=== PATIENT | female | born 1970 | race Caucasian/White ===

== ENCOUNTER 2020-04-13 17:32 | Emergency (ER) | payer SELFPAY ==
[2020-04-13] MEDS: Sodium Chloride 0.9% 1,000 ML IV SCH (18:13)
--- NOTE | 2020-04-13 18:14 | EDM.PDOC ---
<Stephon Chand - Last Filed: 04/13/20 18:19> ED HPI GENERAL MEDICAL PROBLEM - General Chief Complaint: Abdominal Pain Stated Complaint: THINKS APPENDICITIS Time Seen by Provider: 04/13/20 18:06 Source of Information: Reports: Patient History Limitations: Reports: No Limitations - History of Present Illness INITIAL COMMENTS - FREE TEXT/NARRATIVE: Patient presents today with worsening abdominal pain that began last night. She describes the pain as 7/10, no radiations located in the periumbilical area. This is associated with one episode of vomiting, subjective fever, and chills. She has tried using Tylenol which did not provide any relief of symptoms. Her last dosage was this morning. 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 Due to this, she is s/p cholecystectomy, splenectomy, and the body and tail of her pancreas were removed. She has a history of blood clots and a PE in 2010 following her surgery. She is not currently on anticoagulants. Upper Abdomen Pain Score (Numeric/FACES): 7 - Related Data Allergies Allergy/AdvReac Type Severity Reaction Status Date / Time No Known Allergies Allergy Verified 04/13/20 18:00 Home Meds: Home Meds Insulin Aspart [NovoLOG] 10 units SQ ASDIRECTED 04/13/20 [History] Insulin Regular, Human [Novolin R] 15 units SQ BID 04/13/20 [History] diphenhydrAMINE [Benadryl] 25 mg PO BEDTIME PRN 04/13/20 [History] Social & Family History - Tobacco Use Smoking Status *Q: Never Smoker Second Hand Smoke Exposure: No - Caffeine Use Caffeine Use: Reports: None - Recreational Drug Use Recreational Drug Use: No ED ROS GENERAL - Review of Systems Review Of Systems: Comprehensive ROS is negative, except as noted in HPI. ED EXAM, GI/ABD - Physical Exam Exam: See Below Exam Limited By: No Limitations General Appearance: Alert, Mild Distress Throat/Mouth: Normal Inspection Respiratory/Chest: No Respiratory Distress, Lungs Clear, Normal Breath Sounds Cardiovascular: Normal Peripheral Pulses, Regular Rate, Rhythm, No Edema GI/Abdominal Exam: Normal Bowel Sounds, Soft, Tender, Other (Right periumbilical tenderness, tenderness when tapping heel, positive psoas sign, no rebound ) (Female) Exam: Deferred Extremities: Normal Inspection, Normal Range of Motion, Non-Tender Neurological: Alert, Oriented, Normal Cognition, No Motor/Sensory Deficits Psychiatric: Normal Affect, Normal Mood Skin Exam: Warm, Dry Departure - Departure Disposition: Home, Self-Care 01 Clinical Impression: Periumbilical abdominal pain, History of pancreatic cancer, Hx of splenectomy, IDDM (insulin dependent diabetes mellitus) - Discharge Information Forms: ED Department Discharge Sepsis Event Note (ED) - Evaluation Sepsis Screening Result: Possible Sepsis Risk <Lon Augustin - Last Filed: 04/13/20 19:04> <Kimmy Muñiz - Last Filed: 04/13/20 21:50> ED EXAM, GI/ABD - Physical Exam General Appearance: Obese Ears: Hearing Grossly Normal Nose: Normal Inspection Head: Atraumatic, Normocephalic Psychiatric: Anxious Skin Exam: Normal Color Course - Vital Signs Last Recorded V/S: Last Vital Signs Temp 98.7 F 04/13/20 19:20 Pulse 93 04/13/20 19:20 Resp 19 04/13/20 19:20 BP 161/93 H 04/13/20 17:53 Pulse Ox 100 04/13/20 19:20 - Orders/Labs/Meds Orders: Active Orders 24 hr Category Date Time Status CULTURE BLOOD [BC] Stat Lab 04/13/20 18:04 Received CULTURE BLOOD [BC] Stat Lab 04/13/20 18:25 Received CULTURE URINE [RM] Stat Lab 04/13/20 17:38 Received Piperacillin/Tazobactam [Zosyn] 3.375 gm Med 04/13/20 21:40 Ordered Sodium Chloride 0.9% [Normal Saline] 100 ml IV ONETIME Sodium Chloride 0.9% [Normal Saline] 1,000 ml Med 04/13/20 18:15 Active IV ASDIRECTED Blood Culture x2 Reflex Set [OM.PC] Stat Oth 04/13/20 18:00 Ordered Medication Orders Sodium Chloride (Normal Saline) 1,000 mls @ 999 mls/hr IV ASDIRECTED PENDING SALE TO [facility] Last Admin: 04/13/20 18:13 Dose: 999 mls/hr Documented by: BESSY Piperacillin Sod/Tazobactam (Sod 3.375 gm/ Sodium Chloride) 100 mls @ 200 mls/hr IV ONETIME ONE Stop: 04/13/20 22:09 Labs: Laboratory Tests 04/13/20 04/13/20 04/13/20 Range/Units 17:38 17:38 17:38 WBC (5.0-10.0) 10^3/uL RBC (4.2-5.4) 10^6/uL Hgb (12.0-16.0) g/dL Hct (37.0-47.0) % MCV (80-100) fL MCH (27.0-34.0) pg MCHC (33.0-35.0) g/dL Plt Count (150-450) 10^3/uL Neut % (Auto) (42.2-75.2) % Lymph % (Auto) (20.5-50.1) % [place] % (Auto) (2-8) % Eos % (Auto) (1.0-3.0) % Baso % (Auto) (0.0-1.0) % Sodium (136-145) mmol/L Potassium (3.5-5.1) mmol/L Chloride (98-107) mmol/L Carbon Dioxide (21-32) mmol/L Anion Gap (7-13) mEq/L BUN (7-18) mg/dL Creatinine (0.55-1.02) mg/dL Est Cr Clr Drug Dosing mL/min Estimated GFR (MDRD) BUN/Creatinine Ratio (No establ ref range) Glucose (74-99) mg/dL Lactic Acid (0.4-2.0) mmol/L Calcium (8.5-10.1) mg/dL Total Bilirubin (0.2-1.0) mg/dL AST (15-37) U/L ALT (14-59) U/L Alkaline Phosphatase (46-116) U/L Total Protein (6.4-8.2) g/dL Albumin (3.4-5.0) g/dL Globulin Albumin/Globulin Ratio Amylase (25-115) U/L Lipase (73-393) U/L Urine Color Yellow (YELLOW) Urine Appearance Slightly cloudy (CLEAR) Urine pH 7.0 (5.0-9.0) Ur Specific [place] 1.015 (1.005-1.030) Urine Protein 30 H (NEGATIVE) Urine Glucose (UA) 250 H (NEGATIVE) Urine Ketones 80 H (NEGATIVE) Urine Occult Blood Moderate H (NEGATIVE) Urine Nitrite Negative (NEGATIVE) Urine Bilirubin Negative (NEGATIVE) Urine Urobilinogen 1.0 (0.2-1.0) mg/dL Ur Leukocyte Esterase Trace H (NEGATIVE) Urine RBC 10-20 H /HPF Urine WBC 10-20 H (0-5/HPF) /HPF Ur Epithelial Cells Few (NOT SEEN) /HPF Amorphous Sediment Few (NOT SEEN) /HPF Urine Bacteria Few (0-FEW/HPF) /HPF Fine Granular Casts Few H (NOT SEEN) /LPF Urine Mucus Rare (NOT SEEN) /LPF Urine HCG, Qual Negative Urine Opiates Screen Negative (NEGATIVE) Ur Oxycodone Screen Negative (NEGATIVE) Urine Methadone Screen Negative (NEGATIVE) Ur Barbiturates Screen Negative (NEGATIVE) U Tricyclic Antidepress Negative (NEGATIVE) Ur Phencyclidine Scrn Negative (NEGATIVE) Ur Amphetamine Screen Negative (NEGATIVE) U Methamphetamines Scrn Negative (NEGATIVE) Urine MDMA Screen Negative (NEGATIVE) U Benzodiazepines Scrn Negative (NEGATIVE) Urine Cocaine Screen Negative (NEGATIVE) U Marijuana (THC) Screen Negative (NEGATIVE) 04/13/20 04/13/20 04/13/20 Range/Units 18:04 18:04 18:04 WBC 23.1 H (5.0-10.0) 10^3/uL RBC 4.60 (4.2-5.4) 10^6/uL Hgb 13.5 (12.0-16.0) g/dL Hct 40.8 (37.0-47.0) % MCV 88.7 (80-100) fL MCH 29.3 (27.0-34.0) pg MCHC 33.1 (33.0-35.0) g/dL Plt Count 565 H (150-450) 10^3/uL Neut % (Auto) 89.4 H (42.2-75.2) % Lymph % (Auto) 4.4 L (20.5-50.1) % [place] % (Auto) 6.0 (2-8) % Eos % (Auto) 0.0 L (1.0-3.0) % Baso % (Auto) 0.2 (0.0-1.0) % Sodium 133 L (136-145) mmol/L Potassium 3.5 (3.5-5.1) mmol/L Chloride 96 L (98-107) mmol/L Carbon Dioxide 22 (21-32) mmol/L Anion Gap 18.5 H (7-13) mEq/L BUN 9 (7-18) mg/dL Creatinine 0.93 (0.55-1.02) mg/dL Est Cr Clr Drug Dosing 77.31 mL/min Estimated GFR (MDRD) > 60 BUN/Creatinine Ratio 9.7 (No establ ref range) Glucose 215 H (74-99) mg/dL Lactic Acid 2.2 H* (0.4-2.0) mmol/L Calcium 8.2 L (8.5-10.1) mg/dL Total Bilirubin 1.0 (0.2-1.0) mg/dL AST 18 (15-37) U/L ALT 19 (14-59) U/L Alkaline Phosphatase 102 (46-116) U/L Total Protein 7.8 (6.4-8.2) g/dL Albumin 3.0 L (3.4-5.0) g/dL Globulin 4.8 Albumin/Globulin Ratio 0.63 Amylase (25-115) U/L Lipase (73-393) U/L Urine Color (YELLOW) Urine Appearance (CLEAR) Urine pH (5.0-9.0) Ur Specific [place] (1.005-1.030) Urine Protein (NEGATIVE) Urine Glucose (UA) (NEGATIVE) Urine Ketones (NEGATIVE) Urine Occult Blood (NEGATIVE) Urine Nitrite (NEGATIVE) Urine Bilirubin (NEGATIVE) Urine Urobilinogen (0.2-1.0) mg/dL Ur Leukocyte Esterase (NEGATIVE) Urine RBC /HPF Urine WBC (0-5/HPF) /HPF Ur Epithelial Cells (NOT SEEN) /HPF Amorphous Sediment (NOT SEEN) /HPF Urine Bacteria (0-FEW/HPF) /HPF Fine Granular Casts (NOT SEEN) /LPF Urine Mucus (NOT SEEN) /LPF Urine HCG, Qual Urine Opiates Screen (NEGATIVE) Ur Oxycodone Screen (NEGATIVE) Urine Methadone Screen (NEGATIVE) Ur Barbiturates Screen (NEGATIVE) U Tricyclic Antidepress (NEGATIVE) Ur Phencyclidine Scrn (NEGATIVE) Ur Amphetamine Screen (NEGATIVE) U Methamphetamines Scrn (NEGATIVE) Urine MDMA Screen (NEGATIVE) U Benzodiazepines Scrn (NEGATIVE) Urine Cocaine Screen (NEGATIVE) U Marijuana (THC) Screen (NEGATIVE) 04/13/20 Range/Units 18:04 WBC (5.0-10.0) 10^3/uL RBC (4.2-5.4) 10^6/uL Hgb (12.0-16.0) g/dL Hct (37.0-47.0) % MCV (80-100) fL MCH (27.0-34.0) pg MCHC (33.0-35.0) g/dL Plt Count (150-450) 10^3/uL Neut % (Auto) (42.2-75.2) % Lymph % (Auto) (20.5-50.1) % [place] % (Auto) (2-8) % Eos % (Auto) (1.0-3.0) % Baso % (Auto) (0.0-1.0) % Sodium (136-145) mmol/L Potassium (3.5-5.1) mmol/L Chloride (98-107) mmol/L Carbon Dioxide (21-32) mmol/L Anion Gap (7-13) mEq/L BUN (7-18) mg/dL Creatinine (0.55-1.02) mg/dL Est Cr Clr Drug Dosing mL/min Estimated GFR (MDRD) BUN/Creatinine Ratio (No establ ref range) Glucose (74-99) mg/dL Lactic Acid (0.4-2.0) mmol/L Calcium (8.5-10.1) mg/dL Total Bilirubin (0.2-1.0) mg/dL AST (15-37) U/L ALT (14-59) U/L Alkaline Phosphatase (46-116) U/L Total Protein (6.4-8.2) g/dL Albumin (3.4-5.0) g/dL Globulin Albumin/Globulin Ratio Amylase 15 L (25-115) U/L Lipase 35 L (73-393) U/L Urine Color (YELLOW) Urine Appearance (CLEAR) Urine pH (5.0-9.0) Ur Specific [place] (1.005-1.030) Urine Protein (NEGATIVE) Urine Glucose (UA) (NEGATIVE) Urine Ketones (NEGATIVE) Urine Occult Blood (NEGATIVE) Urine Nitrite (NEGATIVE) Urine Bilirubin (NEGATIVE) Urine Urobilinogen (0.2-1.0) mg/dL Ur Leukocyte Esterase (NEGATIVE) Urine RBC /HPF Urine WBC (0-5/HPF) /HPF Ur Epithelial Cells (NOT SEEN) /HPF Amorphous Sediment (NOT SEEN) /HPF Urine Bacteria (0-FEW/HPF) /HPF Fine Granular Casts (NOT SEEN) /LPF Urine Mucus (NOT SEEN) /LPF Urine HCG, Qual Urine Opiates Screen (NEGATIVE) Ur Oxycodone Screen (NEGATIVE) Urine Methadone Screen (NEGATIVE) Ur Barbiturates Screen (NEGATIVE) U Tricyclic Antidepress (NEGATIVE) Ur Phencyclidine Scrn (NEGATIVE) Ur Amphetamine Screen (NEGATIVE) U Methamphetamines Scrn (NEGATIVE) Urine MDMA Screen (NEGATIVE) U Benzodiazepines Scrn (NEGATIVE) Urine Cocaine Screen (NEGATIVE) U Marijuana (THC) Screen (NEGATIVE) Meds: Medications Generic Name Dose Route Start Last Admin Trade Name Freq PRN Reason Stop Dose Admin Sodium Chloride 1,000 mls @ 999 mls/hr 04/13/20 18:15 04/13/20 18:13 Normal Saline IV 999 mls/hr ASDIRECTED PAM Administration Piperacillin Sod/Tazobactam 100 mls @ 200 mls/hr 04/13/20 21:40 Sod 3.375 gm/ Sodium Chloride IV 04/13/20 22:09 ONETIME ONE Discontinued Medications Generic Name Dose Route Start Last Admin Trade Name Freq PRN Reason Stop Dose Admin Hydromorphone HCl 1 mg 04/13/20 19:24 04/13/20 19:35 Dilaudid IVPUSH 04/13/20 19:25 1 mg ONETIME ONE Administration Hydromorphone HCl 0.5 mg 04/13/20 21:40 Dilaudid IVPUSH 04/13/20 21:41 ONETIME ONE Iopamidol 100 ml 04/13/20 18:39 04/13/20 19:22 Isovue-300 (61%) IVPUSH 04/13/20 18:40 100 ml ONETIME ONE Administration Morphine Sulfate 2 mg 04/13/20 18:14 04/13/20 18:26 Morphine IVPUSH 04/13/20 18:15 2 mg ONETIME ONE Administration Ondansetron HCl 4 mg 04/13/20 19:24 04/13/20 19:33 Zofran IVPUSH 04/13/20 19:25 4 mg ONETIME ONE Administration - Re-Assessments/Exams Free Text/Narrative Re-Assessment/Exam: 04/13/20 21:25 CT results discussed with patient. No recent follow up with primary care. States done with all stuff related to pancreatic cancer and has not had follow up for few years. TC Dr Ulrich accepting. IVAB initiated. Tx via ground EMS. Departure - Departure Time of Disposition: 21:48 Condition: Good - Discharge Information *PRESCRIPTION DRUG MONITORING PROGRAM REVIEWED*: No *COPY OF PRESCRIPTION DRUG MONITORING REPORT IN PATIENT CHU: No Sepsis Event Note (ED) - Focused Exam Vital Signs: Vital Signs Temp Pulse Resp BP Pulse Ox 04/13/20 19:20 98.7 F 93 19 100 04/13/20 17:53 98.8 F 120 H 22 H 161/93 H 100 - My Orders Last 24 Hours: My Active Orders 04/13/20 21:40 Piperacillin/Tazobactam [Zosyn] 3.375 gm Sodium Chloride 0.9% [Normal Saline] 100 ml IV ONETIME - Assessment/Plan Last 24 Hours: My Active Orders 04/13/20 21:40 Piperacillin/Tazobactam [Zosyn] 3.375 gm Sodium Chloride 0.9% [Normal Saline] 100 ml IV ONETIME
[2020-04-13] MEDS: Morphine 2 MG/ML SYRINGE IVPUSH ONE (18:26)
[2020-04-13 18:34] LABS: ANION GAP 18.5 mEq/L (7-13); CHLORIDE,CL 96 mmol/L (98-107); SODIUM,NA 133 mmol/L (136-145)
[2020-04-13] MEDS: Iopamidol 612 MG/ML 100 ML Bottle IVPUSH ONE (19:22)
[2020-04-13] MEDS: Ondansetron 4 MG/2 ML SDV IVPUSH ONE (19:33)
[2020-04-13] MEDS: HYDROmorphone 1 MG/ML Syringe IVPUSH ONE (19:35)
--- NOTE | 2020-04-13 20:16 | CT ---
PROCEDURE INFORMATION: Exam: CT Abdomen And Pelvis With Contrast Exam date and time: 04/13/2020 7:02 PM Age: 50 years old Clinical indication: Abdominal pain; Localized; Right lower quadrant (rlq); Prior surgery; Surgery date: 6+ months; Surgery type: Cholecystectomy; Patient HX: HX pancreatic cancer; Additional info: Rlq pain, elevated wbc 23 TECHNIQUE: Imaging protocol: Computed tomography of the abdomen and pelvis with intravenous contrast. Radiation optimization: All CT scans at this facility use at least one of these dose optimization techniques: automated exposure control; mA and/or kV adjustment per patient size (includes targeted exams where dose is matched to clinical indication); or iterative reconstruction. Contrast material: ISOVUE 300; Contrast volume: 100 ml; Contrast route: INTRAVENOUS (IV); COMPARISON: CT ABDOMEN/PELVIS 07/28/2011 2:23 PM FINDINGS: Lungs: 2 mm part solid right lower lobe pulmonary nodule (series 2, image 6), unchanged since 07/28/2011. New 3 mm subsolid lateral right lower lobe pulmonary nodule (series 2, image 16). Mild atelectasis in the visualized portions of the lung bases. Mediastinal space: New small hiatal hernia. Liver: Indeterminate 1.5 cm hypodense left hepatic lobe lesion (series 3, image 16), larger than on the prior study. Gallbladder and bile ducts: Cholecystectomy. Pancreas: Body and the tail of pancreas are absent. Spleen is absent. Spleen: See "Pancreas" finding. Adrenals: Unremarkable. Kidneys and ureters: Unremarkable. Stomach and bowel: Mild colonic diverticulosis without evidence of diverticulitis. Apparent hypodensity in the posterior gastric fundus on the axial images (series 2, image 18) is shown to represent volume averaging from the gastric lumen on the sagittal and coronal reconstruction images. Appendix: Appendix is not seen. No pericecal soft tissue stranding. Intraperitoneal space: Numerous surgical clips in the upper central abdomen, similar to on the prior study. Vasculature: Unremarkable. Lymph nodes: No lymphadenopathy. Bladder: Unremarkable as visualized. Reproductive: Indeterminate 2.7 cm right ovarian lesion, measuring slightly greater than fluid attenuation. Bones/joints: Severe L5-S1 intervertebral disc space narrowing, progressed. Soft tissues: Unremarkable. IMPRESSION: 1. Appendix is not seen. No pericecal soft tissue stranding. 2. Indeterminate 2.7 cm right ovarian lesion, measuring slightly greater than fluid attenuation. Recommend ultrasound. 3. New small hiatal hernia. 4. Body and the tail of pancreas are absent. Spleen is absent. 5. Mild colonic diverticulosis without evidence of diverticulitis. 6. Severe L5-S1 degenerative disc disease, progressed. 7. New 3 mm subsolid lateral right lower lobe pulmonary nodule (series 2, image 16), which may be benign or may represent evidence of metastasis. There is also a 2 mm part solid right lower lobe pulmonary nodule, unchanged since 07/28/2011. Given the reported history of malignancy, Fleischner follow up recommendations for incidental nodules are not indicated. Follow up per patient's medical condition. 8. Indeterminate 1.5 cm mixed density left hepatic lobe lesion (series 3, image 16), larger than on the prior study. Recommend further evaluation with liver MRI.
[2020-04-13] MEDS: Piperacillin/Tazobactam 3.375 GM in Sodium Chloride 0.9% 100 ML IV ONE (21:58)
[2020-04-13] MEDS: HYDROmorphone 0.5 MG/0.5 ML Syringe IVPUSH ONE (22:07)
== END 2020-04-13 22:11 | disposition home or self-care (01) ==
LOC: DL.ED 17:32
DX: R10.30 Lower abdominal pain, unspecified (principal); E11.9 Type 2 diabetes mellitus without complications; Z90.81 Acquired absence of spleen; Z85.07 Personal history of malignant neoplasm of pancreas; Z79.4 Long term (current) use of insulin; Z90.49 Acquired absence of other specified parts of digestive tract
CPT/HCPCS: 36415; 74177; 80053; 80305; 81001; 81025; 82150; 83605; 83690; 85025; 87040; 87086; 87088; 87186; 96361; 96374; 96375; 96376; 99285; J1170; J2270; J2405; J2543; J7030; J7050; Q9967